=== PATIENT | male | born 1990 | race Caucasian/White ===

== ENCOUNTER 2019-12-17 19:56 | Emergency (ER) | payer MEDICAID ==
[~2019-12-17] VITALS: Ht 177.8 cm; Wt 105.7 kg
[2019-12-17 21:03] VITALS: BP 134/92
[2019-12-17] MEDS ORDERED: LIDOCAINE 1% 10 ML VIAL ONE (22:15)
== END 2019-12-17 23:45 ==
LOC: EMS 19:57
DX: R45.851 Suicidal ideations (principal); I10 Essential (primary) hypertension; F17.210 Nicotine dependence, cigarettes, uncomplicated; F12.90 Cannabis use, unspecified, uncomplicated; F15.90 Other stimulant use, unspecified, uncomplicated; Z88.0 Allergy status to penicillin
CPT/HCPCS: 99285; J3490